=== PATIENT | female | born 1995 ===

== ENCOUNTER 2021-01-13 22:37 | Emergency (ER) | payer SELFPAY ==
[~2021-01-13] VITALS: Ht 165.1 cm; Wt 88.2 kg
[2021-01-13 22:38] VITALS: BP 137/89
== END 2021-01-13 22:53 | disposition left against medical advice (07) ==
LOC: M ED 22:37
DX: Z53.21 Procedure and treatment not carried out due to patient leaving prior to being seen by health care provider (principal)